=== PATIENT | male | born 1960 | race Caucasian/White ===

== ENCOUNTER 2019-10-30 15:12 | Inpatient (IN) | payer OTHER ==
[~2019-10-30] VITALS: Ht 180.3 cm; Wt 80.1 kg
[2019-10-30 16:22] LABS: BASO % 0.3 % (0.0-2.0); EOS % 0.2 % (0-4.0); GRAN # 5.7 (1.4-6.5); GRAN % 86.5 % (42.2-75.2); HEMATOCRIT 43.6 % (42.0-52.0); HEMOGLOBIN 14.5 g/dl (13.5-18.0); LYMPH # 0.4 (1.2-3.4); LYMPH % 5.6 % (20.0-51.0); MEAN CELL VOLUME 90 fl (80.0-100.0); MEAN CORPUSCULAR HEMOGLOBIN 30 pg (27.0-31.0); MEAN CORPUSCULAR HGB CONC 33 g/dl (33.0-37.0); MEAN PLATELET VOLUME 10.7 fl (7.4-10.4); MONO # 0.5 (0.1-0.6); MONO % 7.1 % (1.7-9.3); PLATELET COUNT 604 K/mm3 (130-400); RED BLOOD COUNT 4.86 M/mm3 (4.20-5.60); REDCELL DISTRIBUTION WIDTH-CV 13.4 % (11.5-14.5)
[2019-10-30 16:35] LABS: ALBUMIN 4.3 gm/dL (3.5-5.0); BILIRUBIN,TOTAL 0.9 mg/dL (0.0-1.0); CALCIUM 9.5 mg/dL (8.4-10.2); POTASSIUM 4.4 mmol/L (3.4-5.0)
[2019-10-30 17:08] LABS: COLLECTION METHOD CLEAN CATCH
[2019-10-30 17:53] LABS: PH 5 (5-8); URINE APPEARANCE Clear; URINE BILIRUBIN Negative (NEGATIVE); URINE BLOOD Negative (NEGATIVE); URINE COLOR Yellow; URINE GLUCOSE Negative (NEGATIVE); URINE KETONE Trace (NEGATIVE); URINE LEUKOCYTE ESTERASE Negative (NEGATIVE); URINE NITRATE Negative (NEGATIVE); URINE PROTEIN(semi-quant) Negative (NEGATIVE)
[2019-10-30 17:55] LABS: MUCOUS Present /lpf; SQUAMOUS EPITHELIAL 0-2 /hpf; URINE BACTERIA Rare /hpf; URINE RBC 0-2 /hpf
[2019-10-30] MEDS ORDERED: PRINIVIL10 MG PO (20:22)
[2019-10-30 20:23] VITALS: BP 129/79; PULSE 97; TEMP 99.5
--- NOTE | 2019-10-30 20:37 | NUR ---
Pt. arrived to the floor by stretcher at 1900. Pt. is A&OX3, assessment complete. IV to rt. ac patent. Pt reports pain at a 5 on pain scale, gave pain meds per orders. Pt. denies further needs.
[2019-10-30 23:41] VITALS: BP 120/66; PULSE 87; TEMP 98.3
[2019-10-31 04:02] VITALS: BP 111/63; PULSE 93; TEMP 98.6
[2019-10-31 07:46] VITALS: BP 118/70; PULSE 97; TEMP 99.4
[2019-10-31 08:18] LABS: HEMATOCRIT 38.8 % (42.0-52.0); HEMOGLOBIN 13.1 g/dl (13.5-18.0); MEAN CELL VOLUME 88 fl (80.0-100.0); MEAN CORPUSCULAR HEMOGLOBIN 30 pg (27.0-31.0); MEAN CORPUSCULAR HGB CONC 34 g/dl (33.0-37.0); MEAN PLATELET VOLUME 9.4 fl (7.4-10.4); RED BLOOD COUNT 4.43 M/mm3 (4.20-5.60); REDCELL DISTRIBUTION WIDTH-CV 13.4 % (11.5-14.5)
[2019-10-31 08:19] LABS: PLATELET COUNT 339 K/mm3 (130-400)
[2019-10-31 08:33] LABS: BAND 44 % (0-10); CALCIUM 8.4 mg/dL (8.4-10.2); CREATININE, serum 0.79 (0.66-1.25); EOSINOPHIL 5 % (0-4); LYMPHOCYTE 21 % (20.0-51.0); NEUTROPHILS 19 % (42.0-75.2); POTASSIUM 3.9 mmol/L (3.4-5.0)
[2019-10-31 08:34] LABS: PLATELET ESTIMATE NORMAL (NORMAL)
[2019-10-31 08:46] LABS: C-REACTIVE PROTEIN 17.6 mg/dL (0.0-0.9)
--- NOTE | 2019-10-31 09:00 | NUR ---
Initial visit; Patient thanked Machine Fastener for looking in on him and offering spiritual care.
--- NOTE | 2019-10-31 12:46 | NUR ---
Arcade Technician met with patient to discuss discharge planning. 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 Patient states his primary care physician was Dr. Gudelia Leos but that he recently changed to a new pcp. Patient cannot remember the name of the new pcp. Patient obtains medications from [facility] with no difficulties. Patient does not use any DME and is independent with [facility]. Patient does not have Advance Directives. Patient will return to [place], [place] upon discharge. Patient states if he cannot drive, his co-operator and truck driver may be able to take him home. SW will continue to follow.
[2019-10-31 12:50] VITALS: BP 115/68; PULSE 68; TEMP 98.6
[2019-10-31 16:33] VITALS: BP 111/60; PULSE 87; TEMP 98.6
--- NOTE | 2019-10-31 19:01 | NUR ---
PATIENT CURRENTLY RESTING IN BED. PATIENT PROVIDED WITH PRN PAIN MEDICATIONS, IV ABX DIRECTED AND SIPS AND CHIPS. PATIENT INDEPENDENT IN THE ROOM THROUGHOUT MY SHIFT. PATIENT DENIES ANY NEEDS AT THIS TIME. WILL REPORT OFF TO THE ON COMING NURSE.
[2019-10-31 19:05] VITALS: BP 134/62; PULSE 93; TEMP 99.3
[2019-10-31 23:14] VITALS: BP 122/70; PULSE 98; TEMP 99.9
[2019-11-01 03:24] VITALS: BP 117/64; PULSE 80; TEMP 98.1
--- NOTE | 2019-11-01 05:20 | NUR ---
Pt currently resting in bed. Pt was asked if he needed something for pain and he stated that he feels better. He said that he didn't need anything for pain at this time. Pt has call light within reach.
[2019-11-01 05:32] LABS: HEMATOCRIT 38.2 % (42.0-52.0); HEMOGLOBIN 12.9 g/dl (13.5-18.0); MEAN CELL VOLUME 88 fl (80.0-100.0); MEAN CORPUSCULAR HEMOGLOBIN 30 pg (27.0-31.0); MEAN CORPUSCULAR HGB CONC 34 g/dl (33.0-37.0); MEAN PLATELET VOLUME 8.8 fl (7.4-10.4); PLATELET COUNT 314 K/mm3 (130-400); RED BLOOD COUNT 4.32 M/mm3 (4.20-5.60); REDCELL DISTRIBUTION WIDTH-CV 13.4 % (11.5-14.5)
[2019-11-01 05:45] LABS: CALCIUM 8.3 mg/dL (8.4-10.2); CREATININE, serum 0.78 (0.66-1.25); POTASSIUM 3.9 mmol/L (3.4-5.0)
[2019-11-01 05:59] LABS: BAND 26 % (0-10); EOSINOPHIL 1 % (0-4); NEUTROPHILS 49 % (42.0-75.2); PLATELET ESTIMATE NORMAL (NORMAL)
[2019-11-01 06:00] LABS: LYMPHOCYTE 11 % (20.0-51.0)
--- NOTE | 2019-11-01 07:03 | NUR ---
Reported off to FABIOLA Lamar. Pt resting in bed. Pt did received Tylenol this morning. Did inform Willard that he would be ready for more pain medication soon. Pt has his call light within reach.
[2019-11-01 08:37] VITALS: BP 117/70; PULSE 84; TEMP 98.6
--- NOTE | 2019-11-01 09:06 | NUR ---
PT INDEPENDENT IN ROOM. REPORTING PAIN 5/10 PO PAIN MEDS GIVEN ORDERED. PT IS A/O X3. DENIES NEEDS.
[2019-11-01 11:39] VITALS: BP 125/71; PULSE 87; TEMP 98.7
[2019-11-01 15:22] VITALS: BP 120/72; PULSE 86; TEMP 98.4
--- NOTE | 2019-11-01 19:00 | NUR ---
Received report from FABIOLA Lamar. Pt is currently resting in bed and has is call light within reach. He did request that before bed he wanted to have something for pain.
[2019-11-01 19:56] VITALS: BP 131/74; PULSE 97; TEMP 98.5
[2019-11-01 23:20] VITALS: BP 115/62; PULSE 73; TEMP 97.9
--- NOTE | 2019-11-02 02:57 | NUR ---
Pt currently sleeping in bed. Pt did wake up for his IV medicaiton to be hung. Pt has not had any complaints of pain since his does of medication. Pt has been independent in his room and has not requested anything. He has his call light within reach.
[2019-11-02 04:05] VITALS: BP 130/77; PULSE 74; TEMP 97.8
[2019-11-02 05:33] LABS: MEAN CELL VOLUME 90 fl (80.0-100.0); MEAN CORPUSCULAR HEMOGLOBIN 30 pg (27.0-31.0); MEAN CORPUSCULAR HGB CONC 33 g/dl (33.0-37.0); MEAN PLATELET VOLUME 8.8 fl (7.4-10.4); PLATELET COUNT 337 K/mm3 (130-400); RED BLOOD COUNT 4.05 M/mm3 (4.20-5.60); REDCELL DISTRIBUTION WIDTH-CV 13.7 % (11.5-14.5)
[2019-11-02 05:36] LABS: HEMATOCRIT 36.4 % (42.0-52.0)
[2019-11-02 05:45] LABS: CALCIUM 8.2 mg/dL (8.4-10.2); CREATININE, serum 0.72 (0.66-1.25); POTASSIUM 3.8 mmol/L (3.4-5.0)
[2019-11-02 06:06] LABS: C-REACTIVE PROTEIN 18.4 mg/dL (0.0-0.9)
[2019-11-02 06:06] LABS: BAND 12 % (0-10); EOSINOPHIL 2 % (0-4); LYMPHOCYTE 10 % (20.0-51.0); NEUTROPHILS 68 % (42.0-75.2); PLATELET ESTIMATE NORMAL (NORMAL)
[2019-11-02 07:26] VITALS: BP 135/61; PULSE 77; TEMP 98.3
--- NOTE | 2019-11-02 08:00 | NUR ---
PATIENT IS A&O. VSS. REPORTS PAIN IS MINIMAL. PATIENT INDEPENDENT IN ROOM. PATIENT REPORTS PASSING GAS AND HAD SMALL, PEBBLE SIZED BM THIS AM. NO C/O N/V. TOLERATING SIPS & CHIPS WELL. HEAD TO TOE ASSESSMENT WNL.
[2019-11-02] MEDS ORDERED: FLAGYL500 MG PO (10:48)
[2019-11-02] MEDS ORDERED: LEVAQUIN 5500 MG/TA1 PO (10:48)
[2019-11-02 11:22] VITALS: BP 96/76; PULSE 77; TEMP 98.3
--- NOTE | 2019-11-02 12:22 | NUR ---
PATIENT TOLERATING CLEARS WELL. SEE ORDERS TO ADVANCE DIET THIS EVENING IF STILL DOING WELL. IV TO INT. NO C/O N/V.
--- NOTE | 2019-11-02 14:52 | NUR ---
Film Splicer checked in with patient to review discharge plan. Patient is hopeful to discharge tomorrow or Tuesday. Patient states he plans to stay in a hotel for a day or so but is working on making arrangements to get back to [place]. Patient states he has options and is not concerned about getting back. Patient did state he may need assistance setting up a taxi ride to a hotel at discharge. SW will continue to follow.
[2019-11-02 15:42] VITALS: BP 120/65; PULSE 70; TEMP 98.4
[2019-11-02 20:07] VITALS: BP 140/70; PULSE 86; TEMP 98.4
[2019-11-03] VITALS (7 sets, daily range): BP systolic 128–150; BP diastolic 70–78; PULSE 67–80; TEMP 98–99.3
--- NOTE | 2019-11-03 04:51 | NUR ---
Patient noted to be nauseous at the beginning of the shift. PRN Zofran administered. About an hour later, patient called and was vomiting. Large amount of emesis noted. Patient states feeling a little better, but continues to be slightly nauseous. Dr. Lucio notified and ordered PRN Phenergan. This was administered and effective. Patient has had sips of water since then. PRN morphine given at 0430 d/t patient stating he was having cramping, empty, and pressure feeling in his abdomen and requested the PRN medication. Patient continues on IV antibiotics to right AC. Will continue to monitor patient.
--- NOTE | 2019-11-03 07:00 | NUR ---
Report received from FABIOLA Carbajal. pT in bed resting, states he is feeling okay, no nausea, has strange empty feeling in the abd like he hasn't eaten enough but not painful. Will continue to monitor.
[2019-11-03 07:28] LABS: HEMOGLOBIN 12.3 g/dl (13.5-18.0); MEAN CELL VOLUME 87 fl (80.0-100.0); MEAN CORPUSCULAR HEMOGLOBIN 29 pg (27.0-31.0); MEAN CORPUSCULAR HGB CONC 33 g/dl (33.0-37.0); MEAN PLATELET VOLUME 8.6 fl (7.4-10.4); PLATELET COUNT 404 K/mm3 (130-400); RED BLOOD COUNT 4.23 M/mm3 (4.20-5.60); REDCELL DISTRIBUTION WIDTH-CV 13.6 % (11.5-14.5)
[2019-11-03 07:36] LABS: HEMATOCRIT 36.8 % (42.0-52.0)
[2019-11-03 07:53] LABS: CALCIUM 8.1 mg/dL (8.4-10.2); CREATININE, serum 0.73 (0.66-1.25); POTASSIUM 3.5 mmol/L (3.4-5.0)
--- NOTE | 2019-11-03 08:30 | NUR ---
Assessment charted. Pt up to bathroom ad poncho. Denies nausea. Continues to have strange abdominal emptiness/pain. Dr. Lucio to see pt, states pt will not be discharging today, will contineu to monitor.
--- NOTE | 2019-11-03 18:38 | NUR ---
Pt has had some nausea this afternoon, called House to make Phenergan mixture and they are preparing at this time. Will give bedside shift report to nightshiftnita alcazar who will resume care.
--- NOTE | 2019-11-03 22:51 | NUR ---
Pt assessment completed and charted, alert, oriented, roomair, independent. No N/V/D, tingling, numbness, SOA as per pt. Pt asked for PRN pain meds, provided, tolerated well. Settled on bed, call light on reach, no further needs at this time.
[2019-11-04 04:00] VITALS: BP 142/76; PULSE 65; TEMP 97.8
--- NOTE | 2019-11-04 05:24 | NUR ---
Pt has an uneventful night, slept through out the night. No further needs at this time.
--- NOTE | 2019-11-04 06:45 | NUR ---
Pt currently sitting up in bed, Dr. Lucio at bedside. Dr. Lucio states that patient is good to go home provided he feels comfortable to travel. Pt responds with a yes. Pt will discharge by Noon. Assessemnt completed. call light within reach. no further concerns at this time.
[2019-11-04] MEDS ORDERED: NORCO 325 MG-51 TAB PO (07:23)
[2019-11-04] MEDS ORDERED: LEVAQUIN 5500 MG/TA1 PO (08:07)
[2019-11-04] MEDS ORDERED: FLAGYL500 MG PO (08:07)
[2019-11-04 08:33] VITALS: BP 121/71; PULSE 72; TEMP 97.8
[2019-11-04 11:46] VITALS: BP 116/71; PULSE 70; TEMP 97.8
== END 2019-11-04 13:51 | disposition home or self-care (01) | DRG 392 ==
LOC: COL.ER 15:12 → SURG 17:33 → OB 17:33 → SURG 19:43
PROVIDERS: Family Medicine; ADMIT Surgery
DX: K57.20 Diverticulitis of large intestine with perforation and abscess without bleeding (principal); I10 Essential (primary) hypertension
CPT/HCPCS: J1650; J2270; J2405; J2543; J2550; J7030; J7120; Q9967